=== PATIENT | male | born 1985 | race Caucasian/White ===

== ENCOUNTER 2017-08-23 07:07 | Emergency (ER) | payer OTHER ==
[~2017-08-23] VITALS: Ht 182.9 cm; Wt 68.0 kg
[2017-08-23] MEDS ORDERED: NS 1000 ML IV BAG IV ONE (07:12)
[2017-08-23] MEDS ORDERED: NS IV ONE (07:12)
[2017-08-23] MEDS ORDERED: SODIUM BICARB 8.4% 50 MEQ/50 ML (ABBOTT) SYR INJ ONE (07:12)
[2017-08-23] MEDS ORDERED: AMIODARONE 450 MG/9 ML (CORDARONE) VIAL IV ONE (07:12)
[2017-08-23] MEDS ORDERED: ATROPINE INJECTION 1 MG/10 ML SYR (ABBOTT) INJ ONE (07:12)
[2017-08-23] MEDS ORDERED: EPINEPHrine INJECTION 1 MG/ML AMP IJ ONE (07:12)
[2017-08-23] MEDS ORDERED: CATHETER FLUSH 10 ML SYR IV ONE (07:12)
[2017-08-23 07:33] LABS: BASOPHILS # (AUTO) 0.2 10^3/uL (0.0-0.1); BASOPHILS % (AUTO) 1 % (0-10); EOSINOPHILS # (AUTO) 0.1 10^3/uL (0.0-0.3); EOSINOPHILS % (AUTO) 1 % (0-10); HEMATOCRIT 35 % (40-54); HEMOGLOBIN 11.4 G/DL (13.3-17.7); LYMPHOCYTES # (AUTO) 6.1 X 10^3 (1.0-4.0); LYMPHOCYTES % (AUTO) 50 % (12-44); MEAN CORPUSCULAR HEMOGLOBIN 26 PG (25-34); MEAN CORPUSCULAR HGB CONC 33 G/DL (32-36); MEAN CORPUSCULAR VOLUME 81 FL (80-99); MEAN PLATELET VOLUME 12.2 FL (7.4-10.4); MONOCYTES # (AUTO) 2.1 X 10^3 (0.0-1.0); MONOCYTES % (AUTO) 17 % (0-12); NEUTROPHILS # (AUTO) 3.8 X 10^3 (1.8-7.8); NEUTROPHILS % (AUTO) 31 % (42-75); PLATELET COUNT 163 10^3/uL (130-400); RED BLOOD COUNT 4.36 10^6/uL (4.35-5.85); RED CELL DISTRIBUTION WIDTH 18.8 % (10.0-14.5); WHITE BLOOD COUNT 12.4 10^3/uL (4.3-11.0)
[2017-08-23] MEDS ORDERED: NOREPINEPHRINE 4 MG/4 ML (LEVOPHED) AMP IV ONE (07:43)
[2017-08-23] MEDS ORDERED: NS (IVPB) 250 ML ONE (07:43)
[2017-08-23] MEDS ORDERED: AMIODARONE 150 MG/3 ML (CORDARONE) AMP IV ONE (07:45)
[2017-08-23 07:46] LABS: PROTHROMBIN TIME PATIENT 22.2 SEC (12.2-14.7)
[2017-08-23 07:52] LABS: ALANINE AMINOTRANSFERASE 33 U/L (0-55); ALBUMIN 3.3 GM/DL (3.2-4.5); ALKALINE PHOSPHATASE 255 U/L (40-136); BUN/CREATININE RATIO 20; CALCIUM 9.2 MG/DL (8.5-10.1); CARBON DIOXIDE 14 MMOL/L (21-32); CHLORIDE 106 MMOL/L (98-107); CREATININE SERUM 0.75 MG/DL (0.60-1.30); GFR ESTIMATED > 60; GLUCOSE 208 MG/DL (70-105); MAGNESIUM 2.6 MG/DL (1.8-2.4); POTASSIUM 5.7 MMOL/L (3.6-5.0); SODIUM 136 MMOL/L (135-145); TOTAL PROTEIN 6.3 GM/DL (6.4-8.2)
[2017-08-23 07:58] LABS: MYOGLOBIN SERUM 103.4 NG/ML (10.0-92.0)
[2017-08-23] MEDS: AMIODARONE IV SOLUTION 200 ML IV SCH ×3 (08:03→16:09)
[2017-08-23 08:08] LABS: BAND NEUTROPHILS 1 %; BASOPHILS % (MANUAL) 0 %; EOSINOPHILS % (MANUAL) 1 %; MONOCYTES % (MANUAL) 18 %
[2017-08-23 08:09] LABS: ANISOCYTOSIS SLIGHT; ELLIPT/OVALOCYTES SLIGHT; HYPOCHROMASIA SLIGHT; MICROCYTOSIS SLIGHT
[2017-08-23 08:10] LABS: POIKILOCYTOSIS SLIGHT
[2017-08-23 08:18] LABS: LYMPHOCYTES % (MANUAL) 55 %; NEUTROPHILS % (MANUAL) 25 %
--- NOTE | 2017-08-23 08:22 | ED CPR ---
HPI-CPR General Stated Complaint: CODE Source of Information: EMS, Family Exam Limitations: Physical Impairments History of Present Illness Date Seen by Provider: Aug 23, 2017 Time Seen by Provider: 07:11 Initial Comments This 31-year-old young man presents to the emergency room with ongoing CPR for CODE BLUE. Patient was in bed with his girlfriend this morning when she awoke to him convulsing with seizure like activity. He was unresponsive to her. After convulsions stopped he had wheezing or agonal-type breathing and continued to be unresponsive. She activated EMS during the seizure like activity. They arrived approximately 10 minutes later and found the patient to be in V. fib. He was administered one defibrillation resulting in asystole. CPR was continued. 2 doses of epinephrine were administered in route. Patient' s girlfriend and family report that he had spent 6 days at [facility] in July for cardiomyopathy of uncertain etiology. He seemed to be doing well at home until this morning. They deny any drug or alcohol use. Patient recently quit smoking. He is in PEA on arrival. Allergies and Home Medications Allergies Coded Allergies: No Known Drug Allergies (Unverified , 08/23/17) Patient Home Medication List Home Medication List Reviewed: No (Not available) Review of Systems Constitutional: see HPI EENTM: No Symptoms Reported Respiratory: See HPI Cardiovascular: See HPI Gastrointestinal: No Symptoms Reported Musculoskeletal: no symptoms reported Skin: no symptoms reported Psychiatric/Neurological: See HPI Endocrine: No Symptoms Reported Hematologic/Lymphatic: No Symptoms Reported Past Yfporcc-Nkwajq-Nrpcrh Hx Surgeries History of Surgeries: No Respiratory History of Respiratory Disorde: No Cardiovascular History of Cardiac Disorders: Yes Cardiac Disorders: Cardiomyopathy Neurological History of Neurological Disord: No Reproductive System Hx Reproductive Disorders: No Genitourinary History of Genitourinary Disor: No Gastrointestinal History of Gastrointestinal Di: No Musculoskeletal History of Musculoskeletal Dis: No Endocrine History of Endocrine Disorders: Yes Endocrine Disorders: Hypothyroidsim HEENT History of HEENT Disorders: No Cancer History of Cancer: No Psychosocial History of Psychiatric Problem: No Integumentary History of Skin or Integumenta: No Physical Exam Vital Signs Vital Signs - First Documented 08/23/17 08/23/17 07:07 12:51 Pulse 0 Resp 0 B/P (MAP) 0/0 Pulse Ox 38 O2 Delivery Ambu Bag Capillary Refill : General Appearance: Other (Cyanotic and in cardiopulmonary arrest) HEENT: Normal ENT Inspection, Other (Pupils unresponsive) Neck: JVD Respiratory: Lungs Clear, Other (Intubated with LMA) Cardiovascular: Other (PEA) Gastrointestinal: Soft Extremity: Normal Inspection, No Pedal Edema, Other (Cyanotic) Neurologic/Psychiatric: Other (Responsive) Skin: Normal Color, Warm/Dry Focused Exam Evaluation Lactate Level Laboratory Tests 08/23/17 07:35: Lactic Acid Level 13.07*H Lactic Acid Level Laboratory Tests Test 08/23/17 07:35 Lactic Acid Level 13.07 MMOL/L (0.50-2.00) *H Progress/Results/Core Measures Results/Orders Lab Results Laboratory Tests Test 08/23/17 07:20 08/23/17 07:35 Range/Units White Blood Count 12.4 H 4.3-11.0 10^3/uL Red Blood Count 4.36 4.35-5.85 10^6/uL Hemoglobin 11.4 L 13.3-17.7 G/DL Hematocrit 35 L 40-54 % Mean Corpuscular Volume 81 80-99 FL Mean Corpuscular Hemoglobin 26 25-34 PG Mean Corpuscular Hemoglobin Concent 33 32-36 G/DL Red Cell Distribution Width 18.8 H 10.0-14.5 % Platelet Count 163 130-400 10^3/uL Mean Platelet Volume 12.2 H 7.4-10.4 FL Neutrophils (%) (Auto) 31 L 42-75 % Lymphocytes (%) (Auto) 50 H 12-44 % Monocytes (%) (Auto) 17 H 0-12 % Eosinophils (%) (Auto) 1 0-10 % Basophils (%) (Auto) 1 0-10 % Neutrophils # (Auto) 3.8 1.8-7.8 X 10^3 Lymphocytes # (Auto) 6.1 H 1.0-4.0 X 10^3 Monocytes # (Auto) 2.1 H 0.0-1.0 X 10^3 Eosinophils # (Auto) 0.1 0.0-0.3 10^3/uL Basophils # (Auto) 0.2 H 0.0-0.1 10^3/uL Neutrophils % (Manual) 25 % Lymphocytes % (Manual) 55 % Monocytes % (Manual) 18 % Eosinophils % (Manual) 1 % Basophils % (Manual) 0 % Band Neutrophils 1 % Nucleated Red Blood Cells 1 Toxic Granulation Hypochromasia SLIGHT Poikilocytosis SLIGHT Anisocytosis SLIGHT Microcytosis SLIGHT Elliptocytes SLIGHT Prothrombin Time 22.2 H 12.2-14.7 SEC INR Comment 2.0 H 0.8-1.4 Activated Partial Thromboplast Time 47 H 24-35 SEC D-Dimer 3.68 H 0.00-0.49 UG/ML Sodium Level 136 135-145 MMOL/L Potassium Level 5.7 H 3.6-5.0 MMOL/L Chloride Level 106 98-107 MMOL/L Carbon Dioxide Level 14 L 21-32 MMOL/L Anion Gap 16 H 5-14 MMOL/L Blood Urea Nitrogen 15 7-18 MG/DL Creatinine 0.75 0.60-1.30 MG/DL Estimat Glomerular Filtration Rate > 60 BUN/Creatinine Ratio 20 Glucose Level 208 H 70-105 MG/DL Calcium Level 9.2 8.5-10.1 MG/DL Magnesium Level 2.6 H 1.8-2.4 MG/DL Total Bilirubin 1.0 0.1-1.0 MG/DL Aspartate Amino Transf (AST/SGOT) 38 H 5-34 U/L Alanine Aminotransferase (ALT/SGPT) 33 0-55 U/L Alkaline Phosphatase 255 H 40-136 U/L Myoglobin 103.4 H 10.0-92.0 NG/ML Troponin I < 0.30 <0.30 NG/ML Total Protein 6.3 L 6.4-8.2 GM/DL Albumin 3.3 3.2-4.5 GM/DL Lactic Acid Level 13.07 *H 0.50-2.00 MMOL/L My Orders Orders - DARIN BEY MD Chest 1 View, Ap/Pa Only (08/23/17 07:26) Cbc With Automated Diff (08/23/17 07:27) Magnesium (08/23/17 07:27) Ekg Tracing (08/23/17:) Cardiac Profile 1 (08/23/17:) Comprehensive Metabolic Panel (08/23/17 07:27) Myoglobin Serum (08/23/17 07:27) Protime With Inr (08/23/17 07:27) Partial Thromboplastin Time (08/23/17:27) O2 (08/23/17 07:27) Monitor-Rhythm Ecg Trace Only (08/23/17 07:27) Saline Lock/Iv-Start (08/23/17 07:27) Lactic Acid Analyzer (08/23/17 07:27) Chest 1 View, Ap/Pa Only (08/23/17 07:44) Ns (Ivpb) (Sodium Chloride 0.9%) (08/23/17 07:43) Norepinephrine (Levophed) (08/23/17 07:43) Amiodarone For Bolus (Cordarone Bolus) (08/23/17 07:45) Fibrin Degradation Products (08/23/17 07:49) Amiodarone Iv Solution (Nexterone Iv Eliza (08/23/17 08:00) Manual Differential (08/23/17 07:20) Echo Limited (08/23/17 ) Amiodarone Injection (Cordarone Injectio (08/23/17 07:12) Ns Iv 1000 Ml (Sodium Chloride 0.9%) (08/23/17 07:12) Normal Saline (Ns (Lavina Bag)) (08/23/17 07:12) Atropine Inj 10 Mg Syringe (Atropine In (08/23/17 07:12) Epinephrine 1 Mg Injection (Adrenalin I (08/23/17 07:12) Sodium Bicarbonate 8.4% Syr (Sodium Bica (08/23/17 07:12) Sodium Chloride Flush (Catheter Flush Sy (08/23/17 07:12) Medications Given in ED Vital Signs/I&O Vital Sign - Last 12Hours 08/23/17 08/23/17 08/23/17 08/23/17 07:07 07:07 08:20 12:51 Pulse 0 0 Resp 0 0 B/P (MAP) 0/0 Pulse Ox 38 0 0 O2 Delivery Ambu Bag Ambu Bag Ambu Bag ECG Initial ECG Impression Date: Aug 23, 2017 Initial ECG Impression Time: 07:34 Initial ECG Rate: 125 Initial ECG Rhythm: S.Tach Comment Sinus tachycardia with nonspecific T-wave changes. No definite ischemic changes. No axis deviation or abnormal intervals. Diagnostic Imaging Diagonstic Imaging: Xray Plain Films/CT/US/NM/MRI: chest Comments Chest x-ray viewed by me and report reviewed. See report below: NAME: TANI INIGUEZ REC#: [id number] PT STATUS: REG ER : 1985 PHYSICIAN: DARIN BEY MD ADMIT DATE: 08/23/17/ER Signed Date of Exam: 08/23/17 CHEST 1 VIEW, AP/PA ONLY INDICATION: Cardiopulmonary arrest Portable chest at 7:29 AM There is an ET tube projecting over the trachea. NG tube projects over the stomach. There are bilateral perihilar infiltrates greater on the right on left. There is no appreciable effusion or pneumothorax. IMPRESSION: Diffuse alveolar infiltrates in the lungs worse on the right than on left. This could represent acute pulmonary edema. Dictated by: Dictated on workstation # [id number] Dict: 08/23/17817 Trans: 08/23/17936 Interpreted by: ROYAL CAPPS MD Electronically signed by: ROYAL CAPPS MD 08/23/17936 Diagonstic Imaging: Xray Plain Films/CT/US/NM/MRI: chest Comments Repeat chest x-ray viewed by me and report reviewed. See report below: NAME: TANI INIGUEZ [facility] REC#: [id number] PT STATUS: REG ER : 1985 PHYSICIAN: DARIN BEY MD ADMIT DATE: 08/23/17/ER Signed Date of Exam: 08/23/17 CHEST 1 VIEW, AP/PA ONLY INDICATION: Cardiopulmonary arrest EXAMINATION: Portable chest at 7:50 AM. There is an ET tube projecting over the trachea. NG tube projects over the stomach. There are bilateral perihilar alveolar infiltrates. These are not appreciably changed from earlier in the day. IMPRESSION: Severe diffuse alveolar infiltrates could represent acute pulmonary edema. Dictated by: Dictated on workstation # [id number] Dict: 08/23/17814 Trans: 08/23/17936 Interpreted by: ROYAL CAPPS MD Electronically signed by: ROYAL CAPPS MD 08/23/17936 Critical Care Note Critical Care Start Time: 07:11 Stop Time: 08:19 Total Time (minutes) 68 Progress Patient was found to have PEA on arrival. CPR was in progress and was continued. Patient remained hypoxic even with high quality CPR and Combitube ventilation. Chest rise and breath sounds were confirmed bilaterally. Combitube was replaced with a 8.0 ET tube at 07:15. Intubation was successful and improved oxygenation. End-tidal CO2 at 07:18 was 50. Although patient was noted to have a thready pulse as 07:13, chest compressions were continued because oxygen saturations would drop very rapidly without chest compressions. Pulse check at 07:16 noted PEA again and an additional mg of epinephrine was administered. CPR was continued. One amp of sodium bicarbonate was administered at 07:19. Pulse was palpable as 07:20. Breath sounds were auscultated bilaterally. Patient was placed on ventilator at 07:25. Pulse was lost at 07:28 and CPR was resumed. 1 mg of epinephrine was administered. An additional amp of sodium bicarbonate was also administered. Patient remained pulseless and 1 mg of epinephrine was repeated at 07:31. Significant swelling and JVD was noted in the neck. Patient regained pulse and 07:33. Dr. Chicas was consulted and advised an amiodarone 300 mg bolus followed by drip be administered. Amiodarone was administered a 07:49. Patient was not maintaining his blood pressures and Levophed drip was initiated at 07:50. Pulse was lost at that time. CPR was resumed. Epinephrine 1 mg was given a 07: 52. Pulse returned at 07:54. Emergent bedside echocardiogram as recommended by Dr. Chicas showed an ejection fraction around 30-40 percent. Patient became bradycardic at 08:06. Pulse was not palpable. CPR was resumed and epinephrine 1 mg was administered. CPR continued with no return of pulse. Another epinephrine 1 mg dose was given at 08:08. Pulse was again palpable a 08:10. Family had been given updates during the course of resuscitation. Family was present at bedside at 08:11. After discussion with family, the decision was made to withhold CPR if pulseless rhythm return. Patient had been unresponsive throughout the entirety of the resuscitation effort. He did occasionally make attempts to take breaths independently. Patient became bradycardic and lost pulse at 08:18. No heart sounds could be auscultated. Time of was pronounced at 08:19. Departure Impression Impression: Primary Impression: Cardiac arrest Additional Impressions: Pulmonary edema Qualified Codes: J81.0 - Acute pulmonary edema Cardiomyopathy Qualified Codes: I42.9 - Cardiomyopathy, unspecified Ventricular fibrillation Disposition: 20 Condition: Departure-Patient Inst. Referrals: CASA ESPINOSA APRN (PCP/Family) Primary Care Physician DARIN BEY MD Aug 23, 2017 08:22
[2017-08-23 08:27] LABS: NUCLEATED RED BLOOD CELLS 1
--- NOTE | 2017-08-23 08:27 | Clinic Account Progress/Dx ---
Clinic Account Progress/Dx DIAGNOSIS: Date Seen by Provider: Aug 23, 2017 Time Seen by Provider: 08:00 V-fib arrest Progress Note: Pt is a 31yoCM with a PMH of unknown cardiomyopathy diagnosed at [facility]SH roughly 2 months ago who presented to the ER due to OOH cardiac arrest. This morning he was found to exhibiting seizure like activity noted by his fiance. EMS was called and in the interim before their arrival he exhibited agonal breathes for roughly 10m before they arrived. On their arrival he was noted to be in V-fib and ACLS protocol was initiated with defibrillation. He was then noted to be in PEA. He continued to undergo ACLS protocol with chest compressions and epinephrine until arrival to the ER. ROSC was obtained for very short intervals but he was return to PEA. He was given 9 doses of epi, bolused with amiodarone, and given atropine x1 in total. He appeared to be in florid heart failure clinically with JVD, crackles, and edema. CXR reveals pulmonary edema as well. He had a severe metabolic acidosis due to lactic acidosis. Stat echo was being done while I was at bedside. I discussed at bedside with Dr Hernandez his clinical condition and that if ROSC could be obtained for a long enough period of time he could consider transfer for TTM but given his prolonged resuscitation efforts he was likely to suffer from anoxic brain injury. Dr Hernandez led conversation with family (father, stepmother, and fiance) regarding his clinical condition and the efforts being made and his family elected to "let him go home" if he lost a pulse again. Shortly after this decision he again lost a pulse. Pt at 819. MARIXA WEBSTER MD Aug 23, 2017 08:27
--- NOTE | 2017-08-23 08:41 | Diagnostic Imaging Report ---
INDICATION: Cardiopulmonary arrest Portable chest at 7:29 AM There is an ET tube projecting over the trachea. NG tube projects over the stomach. There are bilateral perihilar infiltrates greater on the right on left. There is no appreciable effusion or pneumothorax. IMPRESSION: Diffuse alveolar infiltrates in the lungs worse on the right than on left. This could represent acute pulmonary edema. Dictated by: Dictated on workstation # [id number]
[2017-08-23 12:51] VITALS: BP 0/0
== END 2017-08-23 12:51 | disposition expired ==
LOC: ER 07:11
DX: I46.9 Cardiac arrest, cause unspecified (principal); J81.1 Chronic pulmonary edema; I42.9 Cardiomyopathy, unspecified
CPT/HCPCS: 31500; 36415; 51702; 71045; 80053; 83605; 83735; 83874; 84484; 85007; 85027; 85379; 85610; 85730; 93041; 93308; 99291